=== PATIENT | male | born 1965 | race Caucasian/White ===

== ENCOUNTER 2017-12-03 15:45 | Inpatient (IN) | payer SELFPAY ==
[~2017-12-03] VITALS: Ht 177.8 cm; Wt 78.0 kg
[~2017-12-03 15:45] MED LIST: DEXAMETHASONE SOD PHOS 4 MG/ML VIAL IV ONE; GLYCOPYRROLATE 1 MG/5 ML SYRINGE IV PUSH ONE; LIDOCAINE HCL 1% PF 5 ML SYRINGE OTHER ONE; NEOSTIGMINE 5 MG/5 ML SYRINGE IV PUSH ONE; ONDANSETRON HCL 4 MG/2 ML VIAL IV ONE; PHENYLEPH/NS 1000 MCG/10 ML SYR IV ONE; PROPOFOL 200 MG/20 ML AMP IV ONE; ROCURONIUM INJ 50 MG/5 ML SYRINGE IV PUSH ONE; SODIUM CHLORIDE 0.9% 20 ML VIAL IV ONE; ceFAZolin INJ 1,000 MG VIAL IV ONE
[2017-12-03] MEDS ORDERED: SODIUM CHLOR 0.9% 1000 ML INJ 1,000 ML IV SCH (16:09)
[2017-12-03 16:12] VITALS: BP 127/73; PULSE 93; RESP 20; TEMP 98.8; O2SAT 98
[2017-12-03 16:15] VITALS: O2SAT 98
[2017-12-03] MEDS ORDERED: SODIUM CHLORIDE 0.9% FLUSH 10 ML FLUSH IVF PRN (16:15)
[2017-12-03] MEDS ORDERED: DIPHTH/TETANUS/ACEL PERTUSSIS (BOOSTER) 0.5 ML VIAL/PFS IM ONE (16:15)
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
[2017-12-03] MEDS ORDERED: HYDROmorphone HCL PF 2 MG/ML VIAL IV PUSH ONE (16:30)
[2017-12-03] MEDS ORDERED: ONDANSETRON HCL 4 MG/2 ML VIAL IV PUSH ONE (16:30)
[2017-12-03 16:36] LABS: BASOPHIL # 0.1 TH/MM3 (0-0.2); BASOPHIL % 0.6 % (0.0-2.0); EOSINOPHIL # 0.1 TH/MM3 (0-0.4); EOSINOPHIL % 0.6 % (0.0-4.0); HEMATOCRIT 39.2 % (39.0-51.0); HEMOGLOBIN 13.8 GM/DL (13.0-17.0); LYMPHOCYTE # 1.8 TH/MM3 (1.0-4.8); MEAN CELL VOLUME 101.1 FL (80.0-100.0); MEAN CORPUSCULAR HEMOGLOBIN 35.5 PG (27.0-34.0); MEAN CORPUSCULAR HGB CONC 35.1 % (32.0-36.0); MEAN PLATELET VOLUME 8.4 FL (7.0-11.0); MONO % 9.2 % (0.0-8.0); MONOCYTE # 0.9 TH/MM3 (0-0.9); NEUT % 71.6 % (16.0-70.0); PLATELET COUNT 102 TH/MM3 (150-450); RED BLOOD COUNT 3.87 MIL/MM3 (4.50-5.90); RED CELL DISTRIBUTION WIDTH 14.4 % (11.6-17.2); WHITE BLOOD COUNT 9.7 TH/MM3 (4.0-11.0)
[2017-12-03 16:47] LABS: ALBUMIN 3.2 GM/DL (3.4-5.0); AST (GOT) 127 U/L (15-37); BICARBONATE 21.7 MEQ/L (21.0-32.0); BLOOD UREA NITROGEN 9 MG/DL (7-18); CALCIUM 8.5 MG/DL (8.5-10.1); CHLORIDE 108 MEQ/L (98-107); CREATININE 1.08 MG/DL (0.60-1.30); GLOMERULAR FILTRATION RATE 71 ML/MIN (>89); GLUCOSE,RANDOM 95 MG/DL (74-106); SODIUM (NA) 138 MEQ/L (136-145)
[2017-12-03 16:50] LABS: ALKALINE PHOSPHATASE 62 U/L (45-117); ALT (GPT) 138 U/L (12-78); TOTAL BILIRUBIN ADULT 0.9 MG/DL (0.2-1.0); TOTAL PROTEIN 7.8 GM/DL (6.4-8.2)
[2017-12-03 16:56] LABS: INTERNATIONAL NORMALIZED RATIO 1.1 RATIO; PROTHROMBIN TIME - PATIENT 11.6 SEC (9.8-11.6)
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
[2017-12-03] MEDS ORDERED: HYDROmorphone HCL PF 1 MG/ML VIAL IV PUSH ONE (17:45)
[2017-12-03 17:48] VITALS: BP 136/83; PULSE 96; RESP 20; O2SAT 98
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
[2017-12-03] MEDS ORDERED: IOHEXOL 350 MG/ML 10 ML VIAL (for RAD DIAG) IVCONTRAST ONE (18:51)
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
[2017-12-03 19:26] VITALS: BP 143/72; PULSE 98; RESP 18; O2SAT 95
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
[2017-12-03] MEDS ORDERED: ACETAMINOPHEN/HYDROcodone 325 MG/5 MG TAB PO PRN (20:15)
[2017-12-03] MEDS ORDERED: MAGNESIUM HYDROXIDE SUSP 30 ML CUP PO PRN (20:15)
[2017-12-03] MEDS ORDERED: ONDANSETRON HCL 4 MG/2 ML VIAL IVP PRN (20:15)
[2017-12-03] MEDS ORDERED: SENNOSIDES 8.6 MG TAB PO PRN (20:15)
[2017-12-03] MEDS ORDERED: ACETAMINOPHEN 325 MG TAB PO PRN (20:15)
[2017-12-03] MEDS ORDERED: LACTULOSE SYRUP 20 GM/30 ML CUP PO PRN (20:15)
[2017-12-03] MEDS ORDERED: SODIUM CHLORIDE 0.9% FLUSH 10 ML FLUSH IV FLUSH PRN ×2 (20:15→23:30)
[2017-12-03] MEDS ORDERED: BISACODYL 10 MG SUPP RECTAL PRN (20:15)
[2017-12-03] MEDS ORDERED: MORPHINE SULFATE 2 MG/ML INJ IV PUSH PRN (20:15)
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
[2017-12-03] MEDS: SODIUM CHLOR 0.9% 1000 ML INJ 1,000 ML IV SCH (20:50)
[2017-12-03 20:54] VITALS: BP 112/71; PULSE 83; RESP 18; O2SAT 100
[2017-12-03] MEDS ORDERED: SODIUM CHLORIDE 0.9% FLUSH 10 ML FLUSH IV FLUSH SCH (21:00)
[2017-12-03] MEDS: DOCUSATE SODIUM 50 MG/SENNA 8.6 MG TAB PO SCH (21:00)
[2017-12-03 21:11] VITALS: BP 132/74; PULSE 88; RESP 18; TEMP 100.1; O2SAT 95
[2017-12-03] MEDS ORDERED: POVIDONE IODINE 5% (ANTISEPSIS KIT) 4 APPLICATIONS EACH NARE PRN (21:15)
[2017-12-03] MEDS ORDERED: HALOPERIDOL LACTATE 5 MG/ML AMP IM PRN (21:15)
[2017-12-03] MEDS ORDERED: LORazepam 2 MG/ML VIAL IV PUSH PRN ×4 (21:15)
[2017-12-03] MEDS ORDERED: LORazepam 1 MG TAB PO PRN (21:15)
[2017-12-03] MEDS ORDERED: SODIUM CHLORID 0.9% 500 ML IV PRN (21:15)
[2017-12-03] MEDS ORDERED: LACTATED RINGER'S 1000 ML IV PRN (21:15)
[2017-12-03] MEDS ORDERED: NICOTINE 21 MG/24 HR PATCH T-DERMAL PRN (21:15)
[2017-12-03] MEDS ORDERED: CHLORHEXIDINE GLUCONATE 2 % 1 PACK (2 CLOTHS) TOPICAL PRN (21:15)
[2017-12-03] MEDS ORDERED: LORazepam 2 MG TAB PO PRN (21:15)
[2017-12-03] MEDS ORDERED: FLUMAZENIL 0.5 MG/5 ML VIAL IV PUSH PRN (21:15)
--- NOTE | 2017-12-03 21:46 | EKG ---
Date Performed: 12/03/2017 Time Performed: 21:25:34 PTAGE: 52 years EKG: Sinus rhythm . Normal ECG NO PREVIOUS TRACING DOCTOR: Tab Cisse Interpretating Date/Time 12/03/2017 21:44:40
[2017-12-03] MEDS ORDERED: DO NOT ADM ANY ANTICOAGULANT DRUGS PRN (22:30)
[2017-12-03] MEDS ORDERED: ACETAMINOPHEN 1000 MG/100 ML 100 ML IV ONE (22:51)
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
[2017-12-03] MEDS ORDERED: MEPERIDINE HCL 25 MG/ML VIAL ONE (23:25)
--- NOTE | 2017-12-03 23:26 | RADRPT ---
EXAM DATE/TIME: 12/03/2017 23:04 [facility] COMPARISON: CT ANKLE LEFT W/O CONTRAST W 3D RECON, December 03, 2017, 18:42. ANKLE LEFT COMPLETE ([id number]), November 242017, 16:52. INDICATIONS : External fixation of left ankle in the operating room. MEDICAL HISTORY : None. SURGICAL HISTORY : Appendectomy. ENCOUNTER: Initial ACUITY: 1 day PAIN SCORE: Non-responsive. LOCATION: Left ankle FINDINGS: Comminuted fracturing of the distal tibia and fibula again noted. External fixation placed in the int erim. There is approximately 1.5 cm of lateral displacement of the main fracture fragments of both alisa ron. CONCLUSION: Interim external fixation with improved alignment of the comminuted distal tibia and fibula fractures . Nikolai Atkins MD on December 03, 2017 at 23:23 Board Certified Radiologist. This report was verified electronically.
[2017-12-03] MEDS ORDERED: Post-op Orders (for Pharmacy) XX ONE (23:30)
[2017-12-03] MEDS ORDERED: *morphine SULFATE 4 MG/ML PERIprocedure ONLY ONE (23:51)
[2017-12-04] MEDS: SODIUM CHLOR 0.9% 1000 ML INJ 1,000 ML IV SCH ×2 (00:01→18:04)
[2017-12-04 00:30] VITALS: BP 127/67; PULSE 78; RESP 18; TEMP 98.8; O2SAT 97
[2017-12-04 04:00] VITALS: BP 122/64; PULSE 63; RESP 16; TEMP 98; O2SAT 97
[2017-12-04 07:35] LABS: BASOPHIL % 0.2 % (0.0-2.0); HEMATOCRIT 34.3 % (39.0-51.0); HEMOGLOBIN 12.2 GM/DL (13.0-17.0); LYMPH % 11.6 % (9.0-44.0); LYMPHOCYTE # 0.9 TH/MM3 (1.0-4.8); MEAN CELL VOLUME 99.8 FL (80.0-100.0); MEAN CORPUSCULAR HEMOGLOBIN 35.5 PG (27.0-34.0); MEAN CORPUSCULAR HGB CONC 35.6 % (32.0-36.0); MEAN PLATELET VOLUME 8.3 FL (7.0-11.0); MONO % 7.5 % (0.0-8.0); MONOCYTE # 0.6 TH/MM3 (0-0.9); NEUT % 80.7 % (16.0-70.0); PLATELET COUNT 85 TH/MM3 (150-450); RED BLOOD COUNT 3.44 MIL/MM3 (4.50-5.90); RED CELL DISTRIBUTION WIDTH 14.3 % (11.6-17.2); WHITE BLOOD COUNT 7.5 TH/MM3 (4.0-11.0)
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
[2017-12-04 08:00] VITALS: BP 117/70; PULSE 66; RESP 18; TEMP 96.8; O2SAT 99
[2017-12-04 08:04] LABS: ALBUMIN 2.7 GM/DL (3.4-5.0); ALT (GPT) 110 U/L (12-78); AST (GOT) 106 U/L (15-37); BICARBONATE 24.5 MEQ/L (21.0-32.0); BLOOD UREA NITROGEN 11 MG/DL (7-18); CHLORIDE 109 MEQ/L (98-107); CREATININE 0.89 MG/DL (0.60-1.30); GLOMERULAR FILTRATION RATE 89 ML/MIN (>89); GLUCOSE,RANDOM 138 MG/DL (74-106); SODIUM (NA) 139 MEQ/L (136-145)
[2017-12-04 08:06] LABS: ALKALINE PHOSPHATASE 50 U/L (45-117); TOTAL BILIRUBIN ADULT 1.3 MG/DL (0.2-1.0); TOTAL PROTEIN 6.9 GM/DL (6.4-8.2)
[2017-12-04] MEDS: DOCUSATE SODIUM 50 MG/SENNA 8.6 MG TAB PO SCH ×3 (09:00→21:00)
--- NOTE | 2017-12-04 09:14 | RADRPT ---
EXAM DATE/TIME: 12/04/2017 08:01 [facility] COMPARISON: No previous studies available for comparison. INDICATIONS : Pain with pressure or rotation of arm at medial distal location. MEDICAL HISTORY : None. SURGICAL HISTORY : None. ENCOUNTER: Initial ACUITY: 2 days PAIN SCORE: 10/10 LOCATION: Left forearm. FINDINGS: Minimally displaced fracture is noted through the distal left ulna. There is overlying soft tissue sw elling. Radius, intercarpal joint and elbow joint are grossly intact. CONCLUSION: Fractured left ulna. Cheikh Faye MD on December 04, 2017 at 9:12 Board Certified Radiologist. This report was verified electronically.
[2017-12-04] MEDS: THIAMINE HCL 100 MG TAB PO SCH (10:06)
[2017-12-04] MEDS: FOLIC ACID 1 MG TAB PO SCH (10:06)
[2017-12-04] MEDS: SODIUM CHLORIDE 0.9% FLUSH 10 ML FLUSH IV FLUSH SCH ×2 (10:06→21:00)
[2017-12-04] MEDS: MULTIVITAMINS/MINERALS THERAPEUTIC TAB PO SCH (10:06)
[2017-12-04] MEDS ORDERED: HALOPERIDOL LACTATE 5 MG/ML AMP IV PRN (11:30)
[2017-12-04 12:00] VITALS: BP 114/67; PULSE 66; RESP 18; TEMP 97.5; O2SAT 98
[2017-12-04] MEDS ORDERED: ENOXAPARIN SODIUM 40 MG/0.4 ML SYRINGE SQ SCH (12:00)
[2017-12-04] MEDS: ACETAMINOPHEN/HYDROcodone 325 MG/10 MG TAB PO PRN ×2 (12:34→18:09)
[2017-12-04] MEDS: ENOXAPARIN SODIUM 30 MG/0.3 ML SYRINGE SQ SCH (14:01)
[2017-12-04] MEDS ORDERED: MORPHINE SULFATE 4 MG/ML INJ IV PUSH PRN (14:15)
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
[2017-12-04] MEDS: BACITRACIN TOP OINT 15 GM TUBE TOP SCH ×2 (15:05→21:00)
[2017-12-04 16:00] VITALS: BP 118/62; PULSE 68; RESP 18; TEMP 98; O2SAT 98
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
[2017-12-04 20:00] VITALS: BP 117/72; PULSE 71; RESP 20; TEMP 97.9; O2SAT 97
[2017-12-04] MEDS: REMOVE OLD NICODERM (NICOTINE) PATCH T-DERMAL SCH (21:00)
[2017-12-04] MEDS: MAGNESIUM HYDROXIDE SUSP 30 ML CUP PO SCH (21:00)
[2017-12-05] VITALS: BP 100/61; PULSE 73; RESP 22; TEMP 98.5; O2SAT 95
[2017-12-05] MEDS: ENOXAPARIN SODIUM 30 MG/0.3 ML SYRINGE SQ SCH ×3 (02:12→18:29)
[2017-12-05] MEDS: SODIUM CHLOR 0.9% 1000 ML INJ 1,000 ML IV SCH ×2 (02:15→12:15)
[2017-12-05 04:00] VITALS: BP 100/59; PULSE 77; RESP 20; TEMP 98; O2SAT 94
[2017-12-05 04:17] LABS: AUTOMATED NEUTROPHIL # 3.5 TH/MM3 (1.8-7.7); BASOPHIL % 0.5 % (0.0-2.0); EOSINOPHIL # 0.1 TH/MM3 (0-0.4); HEMATOCRIT 29.6 % (39.0-51.0); HEMOGLOBIN 10.5 GM/DL (13.0-17.0); LYMPH % 30.8 % (9.0-44.0); MEAN CELL VOLUME 101.4 FL (80.0-100.0); MEAN CORPUSCULAR HEMOGLOBIN 35.9 PG (27.0-34.0); MEAN CORPUSCULAR HGB CONC 35.4 % (32.0-36.0); MEAN PLATELET VOLUME 8.6 FL (7.0-11.0); MONO % 13.7 % (0.0-8.0); MONOCYTE # 0.9 TH/MM3 (0-0.9); PLATELET COUNT 72 TH/MM3 (150-450); RED BLOOD COUNT 2.92 MIL/MM3 (4.50-5.90); RED CELL DISTRIBUTION WIDTH 14.6 % (11.6-17.2); WHITE BLOOD COUNT 6.4 TH/MM3 (4.0-11.0)
[2017-12-05 04:51] LABS: BICARBONATE 25.1 MEQ/L (21.0-32.0); CALCIUM 8.2 MG/DL (8.5-10.1); CREATININE 0.73 MG/DL (0.60-1.30)
[2017-12-05] MEDS: ACETAMINOPHEN/HYDROcodone 325 MG/10 MG TAB PO PRN ×4 (06:49→21:10)
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
[2017-12-05 07:45] VITALS: BP 104/63; PULSE 58; RESP 18; TEMP 96.2; O2SAT 97
[2017-12-05] MEDS: MULTIVITAMINS/MINERALS THERAPEUTIC TAB PO SCH (08:58)
[2017-12-05] MEDS: DOCUSATE SODIUM 50 MG/SENNA 8.6 MG TAB PO SCH ×2 (08:58→21:09)
[2017-12-05] MEDS: THIAMINE HCL 100 MG TAB PO SCH (08:58)
[2017-12-05] MEDS: FOLIC ACID 1 MG TAB PO SCH (08:58)
[2017-12-05] MEDS: MAGNESIUM HYDROXIDE SUSP 30 ML CUP PO SCH ×2 (08:58→21:09)
[2017-12-05] MEDS: SODIUM CHLORIDE 0.9% FLUSH 10 ML FLUSH IV FLUSH SCH ×2 (08:58→21:11)
[2017-12-05] MEDS: BACITRACIN TOP OINT 15 GM TUBE TOP SCH ×2 (09:00→21:14)
[2017-12-05 12:00] VITALS: BP 109/57; PULSE 71; RESP 18; TEMP 98.3; O2SAT 97
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
[2017-12-05] MEDS: GABAPENTIN 300 MG CAP PO SCH ×2 (13:00→18:00)
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
[2017-12-05 16:00] VITALS: BP 96/53; PULSE 68; RESP 18; TEMP 98.2; O2SAT 97
[2017-12-05 20:00] VITALS: BP 103/54; PULSE 76; RESP 18; TEMP 98.5; O2SAT 98
[2017-12-05] MEDS: REMOVE OLD NICODERM (NICOTINE) PATCH T-DERMAL SCH (21:12)
[2017-12-05] MEDS ORDERED: CHLORHEXIDINE GLUCONATE 2 % 1 PACK (2 CLOTHS) TOPICAL PRN (22:15)
[2017-12-05] MEDS ORDERED: POVIDONE IODINE 5% (ANTISEPSIS KIT) 4 APPLICATIONS EACH NARE PRN (22:15)
[2017-12-05] MEDS ORDERED: LACTATED RINGER'S 1000 ML IV PRN (22:15)
[2017-12-05] MEDS ORDERED: SODIUM CHLORID 0.9% 500 ML IV PRN (22:15)
[2017-12-06] MEDS: ACETAMINOPHEN/HYDROcodone 325 MG/10 MG TAB PO PRN ×5 (01:13→22:09)
[2017-12-06] MEDS: SODIUM CHLOR 0.9% 1000 ML INJ 1,000 ML IV SCH ×2 (01:15→07:36)
[2017-12-06 01:18] VITALS: BP 95/58; PULSE 68; RESP 17; TEMP 96.4; O2SAT 96
[2017-12-06 04:45] LABS: HEMOGLOBIN 11.2 GM/DL (13.0-17.0)
[2017-12-06 05:16] VITALS: BP 107/55; PULSE 68; RESP 17; TEMP 98.1; O2SAT 96
[2017-12-06] MEDS ORDERED: GENTAMICIN SULFATE 80 MG/2 ML VIAL ONE (07:02)
--- NOTE | 2017-12-06 07:15 | PD.ORT.PN ---
Subjective Subjective Remarks Patient resting comfortably this morning. Reports his ankle pain is relatively well controlled. States his left forearm is more comfortable in the splint. Objective Vitals Vital Signs Date Time Temp Pulse Resp B/P (MAP) Pulse Ox O2 Delivery O2 Flow Rate FiO2 12/06/17 05:16 98.1 68 17 107/55 (72) 96 12/06/17 01:18 96.4 68 17 95/58 (70) 96 12/05/17 20:00 98.5 76 18 103/54 (70) 98 12/05/17 16:00 98.2 68 18 96/53 (67) 97 12/05/17 12:00 98.3 71 18 109/57 (74) 97 12/05/17 07:45 96.2 58 18 104/63 (77) 97 I/O 12/05/17 12/05/17 12/05/17 12/06/17 12/06/17 12/06/17 07:00 15:00 23:00 07:00 15:00 23:00 Intake Total 960 ml 780 ml Output Total 700 ml Balance 960 ml 780 ml -700 ml Intake Oral 960 ml 780 ml Output Urine Total 700 ml # Voids 2 1 # Bowel Movements 0 Result Diagram: 12/06/17 0322 12/05/17 0331 Imaging Last 24 hours Impressions Thoracic Spine CT 12/03/171608 Signed Impressions: Service Date/Time: Sunday, December 03, 2017 18:32 - CONCLUSION: Normal examination for a patient of this age. Elia Khan MD Maxillofacial CT 12/03/171608 Signed Impressions: Service Date/Time: Sunday, December 03, 2017 18:24 - CONCLUSION: Left sided facial soft tissue swelling. No definite acute fracture. Probable old nasal bone fractures. Elia Khan MD Lumbar Spine CT 12/03/171608 Signed Impressions: Service Date/Time: Sunday, December 03, 2017 18:32 - CONCLUSION: 1. No acute fracture. Minimal retrolisthesis of L3 on L4 with mild broad-based disc protrusion with mild lateral recess stenosis and foraminal stenosis. Also mild disc protrusion at L4-5. Elia Khan MD Head CT 12/03/175 Signed Impressions: Service Date/Time: Sunday, December 03, 2017 18:24 - CONCLUSION: 1. No acute intracranial abnormalities. Left facial soft tissue swelling. Elia Khan MD Chest X-Ray 12/03/17 1609 Signed Impressions: Service Date/Time: Sunday, December 03, 2017 16:59 - CONCLUSION: No acute disease. Elia Khan MD Chest CT 12/03/17 1609 Signed Impressions: Service Date/Time: Sunday, December 03, 2017 18:32 - CONCLUSION: 1. Negative for acute traumatic injury within the thorax with dependent atelectasis in the lungs. Mild coronary calcifications. Elia Khan MD Cervical Spine CT 12/03/17 1609 Signed Impressions: Service Date/Time: Sunday, December 03, 2017 18:24 - CONCLUSION: 1. No acute findings. Wdsg-[id number] degenerative disc disease in the lower cervical spine at C6-7. Elia Khan MD Abdomen/Pelvis CT 12/03/17 1609 Signed Impressions: Service Date/Time: Sunday, December 03, 2017 18:32 - CONCLUSION: 1. No acute findings. Distended gallbladder. Elia Khan MD Objective Remarks Awake, alert, no acute distress Left lower extremity: External fixator and dressing in place without any significant drainage on dressing. Patient does damage a positive EHL and FHL. Sensation appears grossly intact over distal toes. Brisk cap refill. Left upper extremity: Splint in place. Patient appears neurologically intact. Sensation intact. Brisk cap refill. Assessment & Plan Assessment and Plan 52-year-old gentleman, POD#3 s/p ex-fix L ankle. Found to have L ulna shaft fracture. In addition multiple left foot fractures 1. Nonweightbearing left lower extremity in external fixator and splint. Strict elevation and ice. Patient will require delayed definitive fixation once his soft tissue improves, likely by my partner, Dr. Ohara 2. Left ulnar fracture. OR today. Mindy Moss MD Dec 06, 2017 07:14
[2017-12-06] MEDS: MAGNESIUM HYDROXIDE SUSP 30 ML CUP PO SCH ×2 (07:35→21:00)
[2017-12-06] MEDS: THIAMINE HCL 100 MG TAB PO SCH (07:35)
[2017-12-06] MEDS: FOLIC ACID 1 MG TAB PO SCH (07:35)
[2017-12-06] MEDS: BACITRACIN TOP OINT 15 GM TUBE TOP SCH ×2 (07:35→21:00)
[2017-12-06] MEDS: DOCUSATE SODIUM 50 MG/SENNA 8.6 MG TAB PO SCH ×2 (07:35→21:00)
[2017-12-06] MEDS: GABAPENTIN 300 MG CAP PO SCH ×3 (07:35→17:31)
[2017-12-06] MEDS: MULTIVITAMINS/MINERALS THERAPEUTIC TAB PO SCH (07:35)
[2017-12-06] MEDS: SODIUM CHLORIDE 0.9% FLUSH 10 ML FLUSH IV FLUSH SCH ×3 (07:36→21:00)
[2017-12-06] MEDS ORDERED: BUPIVACAINE/EPINEPHRINE 0.5% PF 30 ML VIAL ONE (08:12)
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
[2017-12-06] MEDS ORDERED: SODIUM CHLORIDE 0.9% FLUSH 10 ML FLUSH IV FLUSH PRN (09:15)
[2017-12-06] MEDS ORDERED: Post-op Orders (for Pharmacy) XX ONE (09:15)
--- NOTE | 2017-12-06 09:57 | RADRPT ---
EXAM DATE/TIME: 12/06/2017 08:33 [facility] COMPARISON: No previous studies available for comparison. INDICATIONS : Post-op ORIF left ulna fracture. MEDICAL HISTORY : None. SURGICAL HISTORY : ENCOUNTER: Subsequent ACUITY: 4 - 6 days PAIN SCORE: Non-responsive. LOCATION: Left upper extremity FINDINGS: Two view examination of the left forearm demonstrates plate and screw fixation of a distal ulnar shaf t fracture. Normal alignment. CONCLUSION: 1. Fixation of ulnar fracture. Elia Khan MD on December 06, 2017 at 9:37 Board Certified Radiologist. This report was verified electronically.
[2017-12-06] MEDS ORDERED: CHLORHEXIDINE GLUCONATE 2 % 1 PACK (2 CLOTHS) TOPICAL PRN (10:00)
[2017-12-06] MEDS ORDERED: METOPROLOL TARTRATE 25 MG TAB PO PRN (10:00)
[2017-12-06] MEDS ORDERED: LACTATED RINGER'S 1000 ML IV PRN (10:00)
[2017-12-06] MEDS ORDERED: SODIUM CHLORID 0.9% 500 ML IV PRN (10:00)
[2017-12-06] MEDS ORDERED: POVIDONE IODINE 5% (ANTISEPSIS KIT) 4 APPLICATIONS EACH NARE PRN (10:00)
[2017-12-06] MEDS ORDERED: DO NOT ADM ANY ANTICOAGULANT DRUGS PRN (10:00)
[2017-12-06 11:10] VITALS: BP 117/77; PULSE 81; RESP 18; TEMP 97.2; O2SAT 96
[2017-12-06] MEDS: ENOXAPARIN SODIUM 30 MG/0.3 ML SYRINGE SQ SCH (11:57)
[2017-12-06] MEDS ORDERED: SUCCINYLCHOLINE CHLORIDE 200 MG/10 ML VIAL IV ONE (12:00)
[2017-12-06] MEDS ORDERED: LIDOCAINE HCL 1% PF 5 ML SYRINGE OTHER ONE (12:00)
[2017-12-06] MEDS ORDERED: ONDANSETRON HCL 4 MG/2 ML VIAL IV ONE (12:00)
[2017-12-06] MEDS ORDERED: PROPOFOL 200 MG/20 ML AMP IV ONE (12:00)
[2017-12-06] MEDS ORDERED: LACTULOSE SYRUP 20 GM/30 ML CUP PO ONE (14:30)
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
[2017-12-06 16:00] VITALS: BP 123/68; PULSE 77; RESP 18; TEMP 98.2; O2SAT 97
[2017-12-06 20:55] VITALS: BP 126/62; PULSE 88; RESP 17; TEMP 99.4; O2SAT 96
[2017-12-06] MEDS: REMOVE OLD NICODERM (NICOTINE) PATCH T-DERMAL SCH (21:00)
[2017-12-07] VITALS (8 sets, daily range): BP systolic 115–131; BP diastolic 58–75; PULSE 61–82; RESP 17–18; TEMP 97.5–99.1; O2SAT 96–98
[2017-12-07] MEDS: ACETAMINOPHEN/HYDROcodone 325 MG/10 MG TAB PO PRN ×4 (04:48→16:59)
[2017-12-07] MEDS: DOCUSATE SODIUM 50 MG/SENNA 8.6 MG TAB PO SCH ×2 (09:00→20:23)
[2017-12-07] MEDS: MAGNESIUM HYDROXIDE SUSP 30 ML CUP PO SCH ×2 (09:00→20:23)
[2017-12-07] MEDS: GABAPENTIN 300 MG CAP PO SCH ×3 (09:08→16:58)
[2017-12-07] MEDS: MULTIVITAMINS/MINERALS THERAPEUTIC TAB PO SCH (09:08)
[2017-12-07] MEDS: FOLIC ACID 1 MG TAB PO SCH (09:08)
[2017-12-07] MEDS: ENOXAPARIN SODIUM 30 MG/0.3 ML SYRINGE SQ SCH ×2 (09:08→20:22)
[2017-12-07] MEDS: THIAMINE HCL 100 MG TAB PO SCH (09:08)
[2017-12-07] MEDS: BACITRACIN TOP OINT 15 GM TUBE TOP SCH ×2 (09:14→20:23)
[2017-12-07] MEDS: SODIUM CHLORIDE 0.9% FLUSH 10 ML FLUSH IV FLUSH SCH ×4 (09:14→20:23)
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
[2017-12-07] MEDS: REMOVE OLD NICODERM (NICOTINE) PATCH T-DERMAL SCH (20:23)
[2017-12-08 04:30] VITALS: BP 125/65; PULSE 84; RESP 18; TEMP 99.6; O2SAT 96
[2017-12-08] MEDS: ACETAMINOPHEN/HYDROcodone 325 MG/10 MG TAB PO PRN ×2 (05:47→10:07)
[2017-12-08] MEDS ORDERED: HYDR-3583 PO (06:42)
[2017-12-08] MEDS ORDERED: WALKER WHEELS/F1 MIS (06:42)
[2017-12-08] MEDS ORDERED: XARE10TA PO (06:42)
[2017-12-08] MEDS ORDERED: CALCTAB19 PO (06:42)
[2017-12-08] MEDS ORDERED: WHEEMIS3 (06:44)
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
[2017-12-08 08:00] VITALS: BP 118/61; PULSE 80; RESP 18; TEMP 98.9; O2SAT 98
[2017-12-08] MEDS: GABAPENTIN 300 MG CAP PO SCH (08:17)
[2017-12-08] MEDS: MULTIVITAMINS/MINERALS THERAPEUTIC TAB PO SCH (08:17)
[2017-12-08] MEDS: THIAMINE HCL 100 MG TAB PO SCH (08:17)
[2017-12-08] MEDS: FOLIC ACID 1 MG TAB PO SCH (08:17)
[2017-12-08] MEDS: DOCUSATE SODIUM 50 MG/SENNA 8.6 MG TAB PO SCH (08:20)
[2017-12-08] MEDS: SODIUM CHLORIDE 0.9% FLUSH 10 ML FLUSH IV FLUSH SCH ×2 (08:20)
[2017-12-08] MEDS: BACITRACIN TOP OINT 15 GM TUBE TOP SCH (08:20)
[2017-12-08] MEDS: ENOXAPARIN SODIUM 30 MG/0.3 ML SYRINGE SQ SCH (08:20)
[2017-12-08] MEDS: MAGNESIUM HYDROXIDE SUSP 30 ML CUP PO SCH (08:20)
[2017-12-08 10:09] VITALS: O2SAT 97
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
== END 2017-12-08 11:33 | disposition home health service (06) | DRG 493 ==
LOC: NEPC 15:45 → NEDA 20:05 → N06A 21:04
PROVIDERS: ADMIT Surgery; ATTEND Surgery
PROC: 0QSH35Z Reposition Left Tibia with External Fixation Device, Percutaneous Approach (ICD-10-PCS; principal; 2017-12-03 22:19)
PROC: 0PSL04Z Reposition Left Ulna with Internal Fixation Device, Open Approach (ICD-10-PCS; 2017-12-06)
DX: S82.872A Displaced pilon fracture of left tibia, initial encounter for closed fracture (principal); S52.292A Other fracture of shaft of left ulna, initial encounter for closed fracture; D69.6 Thrombocytopenia, unspecified; S82.832A Other fracture of upper and lower end of left fibula, initial encounter for closed fracture; S92.322A Displaced fracture of second metatarsal bone, left foot, initial encounter for closed fracture; S92.212A Displaced fracture of cuboid bone of left foot, initial encounter for closed fracture; S92.002A Unspecified fracture of left calcaneus, initial encounter for closed fracture; V23.4XXA Motorcycle driver injured in collision with car, pick-up truck or van in traffic accident, initial encounter; Y92.488 Other paved roadways as the place of occurrence of the external cause; Y93.89 Activity, other specified; M51.26 Other intervertebral disc displacement, lumbar region; M48.061 Spinal stenosis, lumbar region without neurogenic claudication; S20.312A Abrasion of left front wall of thorax, initial encounter; S00.81XA Abrasion of other part of head, initial encounter; R21 Rash and other nonspecific skin eruption; F17.210 Nicotine dependence, cigarettes, uncomplicated; S61.207A Unspecified open wound of left little finger without damage to nail, initial encounter
CPT/HCPCS: 70450; 70486; 71045; 71260; 72125; 72129; 72132; 73090; 73590; 73600; 73610; 73700; 74177; 76000; 76376; 80048; 80053; 82550; 82552; 82948; 85014; 85018; 85025; 85610; 85730; 86850; 86900; 86901; 90471; 90715; 93005; 94150; 96361; 96374; 96375; 96376; C1713; J0131; J0330; J0690; J1100; J1170; J1580; J1650; J2175; J2270; J2370; J2405; J2710; J3010; J7030; J7120; Q9967